=== PATIENT | male | born 1985 | race African-American/Black ===

== ENCOUNTER 2024-07-18 00:59 | Emergency (ER) | payer MEDICAID, OTHER ==
[~2024-07-18] VITALS: Ht 190.5 cm; Wt 95.0 kg
[2024-07-18] MEDS ORDERED: TRAM50TA2 PO (01:43)
[2024-07-18] MEDS ORDERED: IBUP-1455 PO (01:43)
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
[2024-07-18] MEDS ORDERED: HYDROcodone-ACET 10/325MG TAB PO ONE (01:45)
[2024-07-18] MEDS: KETOROLAC TROMETH 60MG/2ML VIAL IM ONE (04:29)
--- NOTE | 2024-07-18 05:40 | DVH ---
XY L TIB FIB XRAY INDICATION: pain TECHNICAL DATA: Frontal and lateral views were obtained of the left tibia fibula. COMPARISON: None IMPRESSION: No acute fracture or dislocation. Intraosseous bello with 4 cortical screws. Small plantar calcaneal e nthesophyte.
[2024-07-18 05:43] VITALS: BP 102/59; PULSE 72; RESP 16; TEMP 98.6; O2SAT 95
== END 2024-07-18 05:57 | disposition home or self-care (01) ==
LOC: ER 00:59
DX: G89.18 Other acute postprocedural pain (principal); G89.29 Other chronic pain; M51.372 Other intervertebral disc degeneration, lumbosacral region with discogenic back pain and lower extremity pain; M79.605 Pain in left leg; Z98.890 Other specified postprocedural states
CPT/HCPCS: 73590; 96372; 99283; J1885